=== PATIENT | female | born 1995 | race Caucasian/White ===

== ENCOUNTER → 2021-03-15 | Outpatient (CLI) | payer MEDICARE, OTHER | LOC: SLEEP-COR 13:21 | DX: G47.33 Obstructive sleep apnea (adult) (pediatric) (principal) | CPT/HCPCS: 95810 ==

== ENCOUNTER 2021-05-18 15:46 | Emergency (ER) | payer MEDICARE, OTHER | END 2021-05-19 02:00 | disposition home or self-care (01) | LOC: ER1 15:46 | DX: F32.9 Major depressive disorder, single episode, unspecified (principal); Z20.822 Contact with and (suspected) exposure to COVID-19 | CPT/HCPCS: 99284; U0002 ==